=== PATIENT | female | born 1970 | race Caucasian/White ===

== ENCOUNTER 2021-07-10 21:09 | Inpatient (IN) | payer OTHER ==
[2021-07-10] MEDS ORDERED: Ondansetron PF 4 MG/2 ML Vial IVP PRN (21:28)
[2021-07-10 22:22] VITALS: BMI 34.8
[2021-07-10 22:42] LABS: Anion Gap 17 mmol/L (10-20); BUN (Urea Nitrogen) 11 mg/dL (7.0-18.7); Calc. Creatinine Clearance 116 mL/min (70-130); Calcium 8.3 mg/dL (7.8-10.44); Carbon Dioxide 19 mmol/L (22-29); Chloride 103 mmol/L (98-107); Glucose 135 mg/dL (70-105); Magnesium 1.9 mg/dL (1.6-2.6); Potassium 3.7 mmol/L (3.5-5.1); Sodium 135 mmol/L (136-145)
[2021-07-10] MEDS: GUAIFENESIN SF SOLN 200 MG/10 ML UDCUP PO PRN (23:35)
[2021-07-11] MEDS: Acetaminophen 325 MG TAB PO PRN ×3 (00:02→18:44)
[2021-07-11 00:15] LABS: Bacteria/HPF None Seen HPF (None Seen); Bilirubin Negative (Negative); Blood, Urine Trace (Negative); Clarity Clear (Clear); Glucose, Urine (Dipstick) Normal (Negative); Ketone, Urine Negative (Negative); Leukocyte Negative Leu/uL (Negative); Nitrite Negative (Negative); Protein, Urine (Dipstick) 50 mg/dL (Neg-Trace); Specific Gravity, Urine 1.044 (1.002-1.036); Squamous Epithelial 0-3 HPF (0-3); Urobilinogen Normal mg/dL (Less than 2)
[2021-07-11 00:16] LABS: Urine Culture Reflex Yes Yes
[2021-07-11] MEDS ORDERED: Sodium Chloride 0.9% 1,000 ML IV SCH ×2 (01:15→01:45)
[2021-07-11 05:20] LABS: #Lymphocytes 2.8 thou/uL (1.20-3.40); #Monocytes 0.5 thou/uL (0.11-0.59); #Neutrophils 6.4 thou/uL (1.40-6.50); %Eosinophils 0.1 % (0.0-10.0); %Lymphocytes 28.7 % (21.0-51.0); %Monocytes 5.3 % (0.0-10.0); %Neutrophils 65.9 % (42.0-75.0); Mean Corpuscular HGB CONC 33.1 g/dL (32.0-36.0); Mean Corpuscular Hemoglobin 31.2 pg (27.0-31.0); Mean Corpuscular Volume 94.3 fL (78.0-98.0); Platelet Count 222 thou/uL (130-400); RBC Distribution Width 12.7 % (11.5-14.5); Red Blood Cell (RBC) Count 3.83 mill/uL (4.20-5.40); White Blood Cell (WBC) Count 9.6 thou/uL (4.8-10.8)
[2021-07-11 05:39] LABS: ALT (SGPT) 27 U/L (8-55); AST (SGOT) 37 U/L (5-34); Albumin 3.4 g/dL (3.5-5.0); Alkaline Phosphatase 69 U/L (40-110); Anion Gap 14 mmol/L (10-20); BUN (Urea Nitrogen) 12 mg/dL (7.0-18.7); Bilirubin, Total 0.4 mg/dL (0.2-1.2); Calc. Creatinine Clearance 137 mL/min (70-130); Calcium 8.2 mg/dL (7.8-10.44); Carbon Dioxide 22 mmol/L (22-29); Chloride 103 mmol/L (98-107); Globulin 3.9 g/dL (2.4-3.5); Glucose 138 mg/dL (70-105); Potassium 3.9 mmol/L (3.5-5.1); Protein, Total 7.3 g/dL (6.0-8.3); Sodium 135 mmol/L (136-145)
[2021-07-11] MEDS: GUAIFENESIN SF SOLN 200 MG/10 ML UDCUP PO PRN (06:40)
[2021-07-11] MEDS: Ascorbic Acid 500 mg Chewable Tablet PO SCH (07:57)
[2021-07-11] MEDS ORDERED: Ondansetron ODT 4 MG TAB PO PRN (08:20)
[2021-07-11] MEDS ORDERED: Senokot S 8.6-50 MG TAB PO PRN (08:20)
[2021-07-11] MEDS ORDERED: Enoxaparin Sodium 40 MG/0.4 ML SYRINGE SC SCH (09:00)
[2021-07-11] MEDS ORDERED: Zinc Sulfate 220 MG CAP PO SCH (09:00)
[2021-07-11] MEDS ORDERED: Cholecalciferol 1,000 UNITS (25 MCG) TAB PO SCH (09:00)
[2021-07-11] MEDS ORDERED: Famotidine 20 MG TAB PO SCH (09:00)
[2021-07-11] MEDS: Enoxaparin Sodium 40 MG/0.4 ML SYRINGE SC SCH (11:52)
[2021-07-11] MEDS: Dexamethasone 4 mg/ml Vial SLOW IVP SCH (11:53)
[2021-07-11] MEDS: guaiFENesin ER 600 MG TAB PO SCH ×2 (11:53→20:23)
[2021-07-11 12:40] LABS: SARS-CoV-2 PCR by NAA DETECTED (NotDetected)
[2021-07-11] MEDS ORDERED: Albuterol 200 PUFF (6.7GM INHALER) INH PRN (14:48)
[2021-07-11] MEDS: Sodium Chloride 0.65% Nasal 44 ML BOT EA NARE SCH ×3 (18:45→20:22)
[2021-07-11] MEDS: Albuterol 200 PUFF (6.7GM INHALER) INH SCH ×2 (20:22→22:45)
[2021-07-11] MEDS: Cholecalciferol 1,000 UNITS (25 MCG) TAB PO SCH (20:26)
[2021-07-12] MEDS: Acetaminophen 325 MG TAB PO PRN ×3 (01:19→20:21)
[2021-07-12] MEDS: Benzonatate 100 MG CAP PO PRN ×3 (01:52→20:20)
[2021-07-12] MEDS: Albuterol 200 PUFF (6.7GM INHALER) INH SCH ×6 (04:46→22:50)
[2021-07-12] MEDS: Levothyroxine 150 MCG TAB PO SCH (05:40)
[2021-07-12 05:54] LABS: CRP (Inflammatory) 14.68 mg/dL (= or < 0.5); Phosphorus 2.5 mg/dL (2.3-4.7)
[2021-07-12 05:59] LABS: Mean Corpuscular HGB CONC 34.4 g/dL (32.0-36.0); Mean Corpuscular Hemoglobin 32.5 pg (27.0-31.0); Mean Corpuscular Volume 94.6 fL (78.0-98.0); Mean Platelet Volume 8.9 fL (7.4-10.4); Platelet Count 236 thou/uL (130-400); RBC Distribution Width 12.8 % (11.5-14.5)
[2021-07-12 06:00] LABS: ALT (SGPT) 25 U/L (8-55); AST (SGOT) 34 U/L (5-34); Albumin 3.3 g/dL (3.5-5.0); Alkaline Phosphatase 58 U/L (40-110); Anion Gap 16 mmol/L (10-20); BUN (Urea Nitrogen) 13 mg/dL (7.0-18.7); Bilirubin, Total 0.4 mg/dL (0.2-1.2); Calc. Creatinine Clearance 148 mL/min (70-130); Calcium 8.1 mg/dL (7.8-10.44); Carbon Dioxide 20 mmol/L (22-29); Chloride 104 mmol/L (98-107); Globulin 3.8 g/dL (2.4-3.5); Glucose 116 mg/dL (70-105); Magnesium 2.2 mg/dL (1.6-2.6); Potassium 3.9 mmol/L (3.5-5.1); Protein, Total 7.1 g/dL (6.0-8.3); Sodium 136 mmol/L (136-145)
[2021-07-12 06:53] LABS: Band 16 % (5-11); Lymphocytes 14 % (21-51); MDiff Complete? YES; Monocytes 3 % (0-10); Neutrophil 67 % (42-75)
[2021-07-12] MEDS: cefTRIAXone\\ROCEPHIN 2 GM in Sodium Chloride 0.9% 100 ML IVPB SCH (09:27)
[2021-07-12] MEDS: Potassium Chloride 20 MEQ TAB PO SCH (09:29)
[2021-07-12] MEDS: Ascorbic Acid 500 mg Chewable Tablet PO SCH (09:29)
[2021-07-12] MEDS: guaiFENesin ER 600 MG TAB PO SCH ×2 (09:29→20:20)
[2021-07-12] MEDS: Doxycycline 100 MG CAP PO SCH ×2 (09:29→20:20)
[2021-07-12] MEDS: Dexamethasone 4 mg/ml Vial SLOW IVP SCH (09:29)
[2021-07-12] MEDS: Enoxaparin Sodium 40 MG/0.4 ML SYRINGE SC SCH (09:29)
[2021-07-12] MEDS: Sodium Chloride 0.65% Nasal 44 ML BOT EA NARE SCH ×3 (11:01→20:21)
[2021-07-12] MEDS: Cholecalciferol 1,000 UNITS (25 MCG) TAB PO SCH (20:20)
[2021-07-13] MEDS: Albuterol 200 PUFF (6.7GM INHALER) INH SCH ×6 (03:13→22:33)
[2021-07-13 05:29] LABS: Hemoglobin 11.6 g/dL (12.0-16.0); Mean Corpuscular HGB CONC 33.2 g/dL (32.0-36.0); Mean Corpuscular Hemoglobin 31.9 pg (27.0-31.0); Mean Corpuscular Volume 95.8 fL (78.0-98.0); Mean Platelet Volume 9.1 fL (7.4-10.4); Platelet Count 251 thou/uL (130-400); RBC Distribution Width 12.7 % (11.5-14.5); Red Blood Cell (RBC) Count 3.64 mill/uL (4.20-5.40); White Blood Cell (WBC) Count 16.2 thou/uL (4.8-10.8)
[2021-07-13 05:50] LABS: Anion Gap 12 mmol/L (10-20); BUN (Urea Nitrogen) 14 mg/dL (7.0-18.7); CRP (Inflammatory) 11.61 mg/dL (= or < 0.5); Calc. Creatinine Clearance 156 mL/min (70-130); Calcium 8.2 mg/dL (7.8-10.44); Carbon Dioxide 26 mmol/L (22-29); Chloride 104 mmol/L (98-107); Glucose 119 mg/dL (70-105); Sodium 138 mmol/L (136-145)
[2021-07-13] MEDS: Levothyroxine 150 MCG TAB PO SCH (06:07)
[2021-07-13] MEDS: Dexamethasone 4 mg/ml Vial SLOW IVP SCH (09:52)
[2021-07-13] MEDS: cefTRIAXone\\ROCEPHIN 2 GM in Sodium Chloride 0.9% 100 ML IVPB SCH (09:52)
[2021-07-13] MEDS: Potassium Chloride 20 MEQ TAB PO SCH (09:53)
[2021-07-13] MEDS: Ascorbic Acid 500 mg Chewable Tablet PO SCH (09:53)
[2021-07-13] MEDS: Acetaminophen 325 MG TAB PO PRN (09:53)
[2021-07-13] MEDS: Doxycycline 100 MG CAP PO SCH ×2 (09:54→20:10)
[2021-07-13] MEDS: Aspirin 81 mg Enteric Coated Tablet PO SCH (09:54)
[2021-07-13] MEDS: Enoxaparin Sodium 40 MG/0.4 ML SYRINGE SC SCH (09:54)
[2021-07-13] MEDS: guaiFENesin ER 600 MG TAB PO SCH ×2 (09:56→20:10)
[2021-07-13] MEDS: Sodium Chloride 0.65% Nasal 44 ML BOT EA NARE SCH ×3 (10:19→20:14)
[2021-07-13 10:39] LABS: #Basophils 0.2 thou/uL (0.0-0.2); #Lymphocytes 4.1 thou/uL (1.20-3.40); #Monocytes 0.8 thou/uL (0.11-0.59); #Neutrophils 11.6 thou/uL (1.40-6.50); %Basophils 1.4 % (0.0-1.0); %Lymphocytes 24.5 % (21.0-51.0); %Monocytes 4.9 % (0.0-10.0); %Neutrophils 69.1 % (42.0-75.0)
[2021-07-13] MEDS: Benzonatate 100 MG CAP PO PRN (20:10)
[2021-07-13] MEDS: Cholecalciferol 1,000 UNITS (25 MCG) TAB PO SCH (20:10)
[2021-07-14] MEDS: Albuterol 200 PUFF (6.7GM INHALER) INH SCH ×3 (02:38→09:40)
[2021-07-14] MEDS: Levothyroxine 150 MCG TAB PO SCH (05:30)
[2021-07-14 05:34] LABS: Hemoglobin 12.2 g/dL (12.0-16.0); Mean Corpuscular HGB CONC 34.2 g/dL (32.0-36.0); Mean Corpuscular Hemoglobin 32.6 pg (27.0-31.0); Mean Corpuscular Volume 95.4 fL (78.0-98.0); Mean Platelet Volume 9.7 fL (7.4-10.4); Platelet Count 256 thou/uL (130-400); RBC Distribution Width 12.9 % (11.5-14.5); Red Blood Cell (RBC) Count 3.73 mill/uL (4.20-5.40)
[2021-07-14 05:43] LABS: Anion Gap 10 mmol/L (10-20); BUN (Urea Nitrogen) 15 mg/dL (7.0-18.7); CRP (Inflammatory) 5.42 mg/dL (= or < 0.5); Calc. Creatinine Clearance 152 mL/min (70-130); Calcium 8.4 mg/dL (7.8-10.44); Carbon Dioxide 27 mmol/L (22-29); Chloride 106 mmol/L (98-107); Glucose 102 mg/dL (70-105); Potassium 4.3 mmol/L (3.5-5.1); Sodium 139 mmol/L (136-145)
[2021-07-14 06:28] LABS: Band 2 % (5-11); Eosinophils 1 % (0-10); Lymphocytes 60 % (21-51); MDiff Complete? YES; Monocytes 6 % (0-10); Neutrophil 30 % (42-75); Reactive Lymphocytes 1 % (0-10)
[2021-07-14 08:57] VITALS: BP 134/67
[2021-07-14] MEDS: cefTRIAXone\\ROCEPHIN 2 GM in Sodium Chloride 0.9% 100 ML IVPB SCH (09:36)
[2021-07-14] MEDS: Enoxaparin Sodium 40 MG/0.4 ML SYRINGE SC SCH (09:36)
[2021-07-14] MEDS: guaiFENesin ER 600 MG TAB PO SCH (09:37)
[2021-07-14] MEDS: Dexamethasone 4 mg/ml Vial SLOW IVP SCH (09:37)
[2021-07-14] MEDS: Doxycycline 100 MG CAP PO SCH (09:37)
[2021-07-14] MEDS: Ascorbic Acid 500 mg Chewable Tablet PO SCH (09:37)
[2021-07-14] MEDS: Aspirin 81 mg Enteric Coated Tablet PO SCH (09:37)
[2021-07-14] MEDS: Sodium Chloride 0.65% Nasal 44 ML BOT EA NARE SCH (09:39)
[2021-07-14 12:03] VITALS: TEMP 99
== END 2021-07-14 16:53 | disposition home or self-care (01) | DRG 871 ==
LOC: 2SE 21:09 → OBSVTOIN 07-11 08:20
PROVIDERS: ADMIT Internal Medicine; ATTEND Internal Medicine
PROC: 8E0ZXY6 Isolation (ICD-10-PCS; principal; 2021-07-11)
DX: A41.89 Other specified sepsis (principal); U07.1 COVID-19; J12.82 Pneumonia due to coronavirus disease 2019; J96.01 Acute respiratory failure with hypoxia; N39.0 Urinary tract infection, site not specified; E87.1 Hypo-osmolality and hyponatremia; K92.0 Hematemesis; R65.20 Severe sepsis without septic shock; E03.9 Hypothyroidism, unspecified; E87.6 Hypokalemia; E66.9 Obesity, unspecified; N18.2 Chronic kidney disease, stage 2 (mild); Z68.34 Body mass index [BMI] 34.0-34.9, adult; Z90.49 Acquired absence of other specified parts of digestive tract; Z79.890 Hormone replacement therapy; Z80.8 Family history of malignant neoplasm of other organs or systems
CPT/HCPCS: 36415; 80048; 80053; 81001; 82728; 83735; 84100; 84443; 85025; 86140; 87077; 87086; G0378; J0696; J1100; J1650; J3490; J7050; Q0162; U0003; U0005